=== PATIENT | female | born 1985 | race American Indian/Alaskan Native ===

== ENCOUNTER 2016-12-20 16:38 | Emergency (ER) | payer OTHER ==
[2016-12-20 17:01] VITALS: BP 130/82; PULSE 79; RESP 16; TEMP 97.3; O2SAT 100
--- NOTE | 2016-12-20 18:15 | ED PDOC ---
HPI: General Adult Time Seen by Provider: 12/20/16 17:12 Chief Complaint (Nursing): ENT Problem Chief Complaint (Provider): Throat Pain History Per: Patient History/Exam Limitations: no limitations Onset/Duration Of Symptoms: Days (x 2), Worse Since (Last night) Current Symptoms Are (Timing): Still Present Additional Complaint(s): Say is a 31 year old female, who presents to the Emergency Department complaining of throat pain for the past week, worsening last night. Patient states pain is worse when she coughs and swallows. She reports taking Nyquil for her exvsru3iv with no relief. No fever, chills, chest pain, shortness of breath. PMD: No PMD provided Past Medical History Reviewed: Historical Data, Nursing Documentation, Vital Signs Vital Signs: Last Vital Signs Temp 97.3 F L 12/20/16 16:58 Pulse 79 12/20/16 16:58 Resp 16 12/20/16 16:58 BP 130/82 12/20/16 16:58 Pulse Ox 100 12/20/16 18:33 - Medical History PMH: No Chronic Diseases - Surgical History Surgical History: No Surg Hx - Family History Family History: States: No Known Family Hx - Allergies Allergies/Adverse Reactions: Allergies Allergy/AdvReac Type Severity Reaction Status Date / Time lactose Allergy DIARRHEA Verified 12/20/16 16:58 Review of Systems ROS Statement: Except As Marked, All Systems Reviewed And Found Negative Constitutional: Negative for: Fever, Chills ENT: Positive for: Throat Pain Cardiovascular: Negative for: Chest Pain Respiratory: Positive for: Cough. Negative for: Shortness of Breath Physical Exam - Reviewed Nursing Documentation Reviewed: Yes Vital Signs Reviewed: Yes - Physical Exam Appears: Positive for: Non-toxic Head Exam: Positive for: ATRAUMATIC, NORMAL INSPECTION, NORMOCEPHALIC Eye Exam: Positive for: Normal appearance ENT: Positive for: Pharynx Is (normal). Negative for: Pharyngeal Erythema, Tonsillar Exudate, Tonsillar Swelling Neck: Positive for: Normal, Supple Cardiovascular/Chest: Positive for: Regular Rate, Rhythm Respiratory: Positive for: Normal Breath Sounds. Negative for: Respiratory Distress Neurologic/Psych: Positive for: Alert, Oriented - ECG O2 Sat by Pulse Oximetry: 100 (RA) Pulse Ox Interpretation: Normal Medical Decision Making Medical Decision Making: Time: 18:05 Impression: Throat Pain Plan: - Prednisone 60 mg PO - Rapid Strep Test Strep (-) Scribe Attestation: Documented by Сергей Hadley, acting as a scribe for Bushra Zamora PA-C Provider Scribe Attestation: All medical record entries made by the Scribe were at my direction and personally dictated by me. I have reviewed the chart and agree that the record accurately reflects my personal performance of the history, physical exam, medical decision making, and the department course for this patient. I have also personally directed, reviewed, and agree with the discharge instructions and disposition. Disposition - Clinical Impression Clinical Impression: Viral pharyngitis - Patient ED Disposition Is Patient to be Admitted: No - Disposition Disposition: Routine/Home Disposition Time: 19:15 Condition: GOOD Instructions: Pharyngitis (ED) Forms: [employer] ([employer])
== END 2016-12-20 20:27 | disposition home or self-care (01) ==
LOC: H.ER 16:38
DX: J02.9 Acute pharyngitis, unspecified (principal)